=== PATIENT | male | born 1975 | race African-American/Black ===

== ENCOUNTER 2019-03-12 15:01 | Emergency (ER) | payer OTHER ==
[~2019-03-12] VITALS: Ht 188 cm; Wt 103.4 kg
[2019-03-12 15:05] VITALS: Ht 188 cm; Wt 103.4 kg
[2019-03-12 15:59] LABS: BASOPHIL % 0.5 % (0-2); PLATELET COUNT 261 x10^3mcL (130-400)
[2019-03-12 16:00] LABS: RED CELL DISTRIBUTION WIDTH 14.7 % (11.5-14.5)
[2019-03-12 16:03] LABS: CALCIUM 9.4 mg/dL (8.5-10.1); CARBON DIOXIDE 24.1 mmol/L (21-32); CHLORIDE SERUM 105 mmol/L (98-107); CREATININE SERUM 1.2 mg/dL (0.7-1.3); GFR1 > 60 mL/min; GLUCOSE SERUM 99 mg/dL (74-106); POTASSIUM SERUM 3.7 mmol/L (3.5-5.1); SODIUM SERUM 140 mmol/L (136-145)
[2019-03-12 16:08] LABS: ALKALINE PHOSPHATASE 95 U/L (46-116); ALT/SGPT 36 U/L (16-63); AST/SGOT 19 U/L (15-37); BILIRUBIN TOTAL 1.27 mg/dL (0.20-1.00); TOTAL PROTEIN, SERUM 8.1 g/dL (6.4-8.2)
[2019-03-12 19:49] VITALS: BP 122/84
== END 2019-03-12 20:15 | disposition home or self-care (01) ==
LOC: ED 15:01
DX: R07.89 Other chest pain (principal); R42 Dizziness and giddiness; R06.02 Shortness of breath
CPT/HCPCS: 36415